=== PATIENT | male | born 1990 | race African-American/Black ===

== ENCOUNTER 2016-09-29 23:19 | Emergency (ER) | payer SELFPAY ==
[~2016-09-29] VITALS: Ht 170.2 cm; Wt 87.0 kg
[2016-09-30] MEDS ORDERED: MORPHINE SULFATE 4 MG/ML CPJ (NOT FOR IM USE) IV ONE (01:30)
[2016-09-30] MEDS ORDERED: ACETAMINOPHEN WITH CODEINE 120-12MG/5ML UDC PO ONE (01:45)
[2016-09-30 02:11] VITALS: BP 149/94
== END 2016-09-30 03:13 | disposition home or self-care (01) ==
LOC: ER 09-30
DX: S09.8XXA Other specified injuries of head, initial encounter (principal); H92.02 Otalgia, left ear; R22.0 Localized swelling, mass and lump, head; H92.22 Otorrhagia, left ear; H57.8 Other specified disorders of eye and adnexa; F12.10 Cannabis abuse, uncomplicated; Y08.89XA Assault by other specified means, initial encounter; Y93.89 Activity, other specified; Y92.89 Other specified places as the place of occurrence of the external cause; Y99.8 Other external cause status
CPT/HCPCS: 70450; 70486; 99284